=== PATIENT | female | born 1995 | race Two or more races ===

== ENCOUNTER 2024-12-17 10:27 | Emergency (ER) | payer MEDICAID, SELFPAY ==
--- NOTE | 2024-12-17 10:32 | EKG_ITS ---
[facility] Test Date: 2024-12-17 Pat Name: ASHLEIGH JACK Department: Room: - Gender: Female [employer]: : 1995 Requested By: Samantha Chandler Order Number: [id number] Reading MD: Samantha Chandler Measurements Intervals [place] Rate: 64 P: 64 [place]: 113 QRS: 76 QRSD: 88 T: 40 QT: 393 QTc: 406 Interpretive Statements SINUS RHYTHM WITH SHORT [place] INTERVAL NONSPECIFIC T-WAVE ABNORMALITY No previous ECG available for comparison /[id number]/[email or web address]/[id number].pdf
[2024-12-17 11:03] VITALS: BP 116/77; PULSE 64; RESP 20; TEMP 37.2; O2SAT 97; BMI 17.4
--- NOTE | 2024-12-17 11:07 | XR_ITS ---
Examination: PA lateral chest 2 views TECHNIQUE: Upright PA lateral chest 2 views Date and time: December 17, 2024 1132 hours INDICATIONS: Chest pain today. FINDINGS: Significant pneumonia anterior segment left upper lobe. Normal heart size Right lung clear IMPRESSION: Significant left upper lobe pneumonia
--- NOTE | 2024-12-17 11:07 | PD.EDSOB ---
ED SOB =RME/HPI General Chief Complaint: Shortness of Breath/Dyspnea Stated Complaint: Cough, chest pain, SOB Time Seen by Provider: 12/17/24 11:06 Arrival date/time: 12/17/24 10:27 29-year-old female with history of methamphetamine abuse presents to the emergency department today stating that she has cough, congestion and shortness of breath patient for symptoms ongoing for the last couple of days patient reports no fever nausea vomiting Limitations: no limitations Related Data Previous Rx's ?Medication ?Instructions ?Recorded albuterol sulfate 90 mcg/actuation 2 puff inhalation Q6H PRN 12/17/24 aerosol inhaler (Ventolin HFA) shortness of breath or wheezing #8.5 grams amoxicillin 875 mg-potassium 1 tab PO BID 7 days #14 tabs 12/17/24 clavulanate 125 mg tablet azithromycin 500 mg tablet See Rx Instructions PO .COMPLEX #6 12/17/24 tabs Allergies Allergy/AdvReac Type Severity Reaction Status Date / Time No Known Allergies Allergy Verified 12/17/24 10:31 Review of Systems Review of Systems Systems Reviewed: All systems reviewed, normal except as documented Constitutional Constitutional: Reports system reviewed and no additional complaints, except as documented, Denies fever(s) and Denies headache(s) Eyes Eyes: Reports system reviewed and no additional complaints, except as documented and Denies blurry vision ENT Ears, Nose, Mouth, and Throat: Reports system reviewed and no additional complaints, except as documented, Denies headache(s), Denies nasal congestion and Denies nasal discharge Cardiovascular Cardiovascular: Reports system reviewed and no additional complaints, except as documented, Reports chest pain and Reports dyspnea Respiratory Respiratory: Reports system reviewed and no additional complaints, except as documented, Reports chest congestion, Reports cough and Reports dyspnea Gastrointestinal Gastrointestinal: Reports system reviewed and no additional complaints, except as documented and Denies abdominal pain Integumentary/Breasts Skin/Breast: Reports system reviewed and no additional complaints, except as documented and Denies rash Neurologic Neurologic: Reports system reviewed and no additional complaints, except as documented, Reports as per HPI and Denies headache(s) Past Medical History Social History SMOKING STATUS: Current some day smoker ED Exam General Limitations: Present no limitations General appearance: Present alert and in no apparent distress Head Head exam: Present atraumatic, normocephalic and normal inspection Eye Eye exam: Present normal appearance, PERRL and EOMI; Absent conjunctival injection ENT ENT exam: Present normal exam, normal oropharynx and mucous membranes moist Neck Neck exam: Present normal inspection, full ROM and trachea midline Chest Chest inspection: Present normal inspection and symmetric chest wall rise Respiratory Respiratory exam: Present normal lung sounds bilaterally; Absent respiratory distress, wheezes, stridor, accessory muscle use or prolonged expiratory phase Cardiovascular Cardiovascular exam: Present regular rate, normal rhythm and normal heart sounds; Absent bradycardia, tachycardia, irregular rhythm or JVD Abdominal Exam Abdominal exam: Present soft and normal bowel sounds Extremities Exam Extremities exam: Present normal inspection and full ROM Back Exam Back exam: Present normal inspection and full ROM Neurological Exam Neurological exam: Present alert, oriented X3 and CN II-XII intact Psychiatric Psychiatric exam: Present normal affect and normal mood Skin Skin exam: Present warm, dry, intact and normal color Course Quality Measures none Orders Category Date Time Status EKG (ED ONLY) *Do not use* NOW Care 12/17/24 10:32 Completed EKG (ED Only) Stat Exams 12/17/24 10:32 Draft XR chest 2V Stat Exams 12/17/24 11:07 Completed CBC Stat Lab 12/17/24 11:31 Completed Comprehensive Metabolic Panel Stat Lab 12/17/24 11:31 Completed Drug Screen,Urine Stat Lab 12/17/24 11:22 Completed HCG Qualitative,Urine Stat Lab 12/17/24 11:22 Completed Troponin I Stat Lab 12/17/24 11:31 Completed Lidocaine 1% 20 ml [Xylocaine 1% 20 ML] Med 12/17/24 12:36 Discontinued 2.1 ml INFL X1 ONE cefTRIAXone [Rocephin] Med 12/17/24 12:36 Discontinued 1,000 mg IM X1 ONE Vital Signs Vital signs: Vital Signs Temperature 99.0 F 12/17/24 11:03 Pulse Rate 64 12/17/24 11:03 Respiratory Rate 20 12/17/24 11:03 Blood Pressure 116/77 12/17/24 11:03 Pulse Oximetry (%) 97 12/17/24 11:03 Oxygen Delivery Method Room Air 12/17/24 11:03 O2 saturation 97% on room air with normal limits PROCEDURES: EKG Interpretation #1: Date of EK12/17/24 Time of EK:58 Rate: 64 Interpretation: Interpreted by me EKG Impression: Normal sinus rhythm, No acute ST-T changes, No ectopy, No ischemic changes, Normal QRS, Normal intervals and Normal axis Shortness of Breath / Dyspnea MDM Narrative MDM Narrative:: 29-year-old female with history of methamphetamine abuse presents to the emergency department today stating that she has cough, congestion and shortness of breath patient for symptoms ongoing for the last couple of days patient reports no fever nausea vomiting On exam patient well-appearing patient is not appear ill or toxic no acute stress patient has no tachypnea or dyspnea no increased work of breathing Lab work and imaging obtained Lab work unremarkable Imaging consistent with pneumonia Patient given Rocephin here Explained to the patient I would like her to have a repeat x-ray within the next 10 days here in the emergency department to document clearing of this pneumonia For emergent concerns patient instructed to return immediately, patient states understanding Patient data External records reviewed:: [facility] previous records Clinical information provided by:: patient Social determinants that could affect healthcare access:: none Patient has the following chronic illnesses:: None How is presenting disease/condition affected by chronic disease/condition?: no chronic disease Evaluation data The following diagnostics were reviewed and interpreted by me:: lab results, radiology exam(s) and EKG tracing(s) Lab and/or radiology exams considered but not ordered:: Labs, radiology, EKG obtained Interpretation Summary: Reviewed by me Medications / Prescriptions Medications or Prescriptions considered but not ordered:: Given Medication administrations:: Medication Administration History Discontinued Medications Ceftriaxone Sodium (Ceftriaxone Sod Inj 1,000 Mg Vial) 1,000 mg IM X1 ONE Stop: 12/17/24 12:37 Last Admin: 12/17/24 13:09 Dose: 1,000 mg Documented By: GRETTA Lidocaine HCl (Lidocaine Hcl 1% 20 Ml Vial) 2.1 ml INFL X1 ONE Stop: 12/17/24 12:37 Last Admin: 12/17/24 13:09 Dose: 2.1 ml Documented By: GRETTA Given Consultations Consultation(s) initiated? (list below): No Diagnosis Shortness of Breath Differential Diagnosis: acute exacerbation of chronic obstructive airways disease, congestive heart failure, community acquired pneumonia and pulmonary embolism Most likely diagnosis given after review of the tests above:: Pneumonia Admission Indicated Admission indicated?: not indicated Admission Request Was there a request for admission?: No Disposition Plan Disposition Plan: Discharge Discharge Attestation Discharge Attestation: The patient and all family members were given an opportunity to ask questions and understood the discharge instructions. Discharge instructions specifically effects, indications for sooner follow up or return to the emergency department, and the expected course of current diagnosis. Patient condition: Stable Discharge Plan Plan Patient Disposition: HOME (Self Care) Discharge Disposition comment: Stable Prescriptions/Referrals Prescriptions/Med Rec: New amoxicillin-pot clavulanate 875-125 mg tablet 1 tab PO BID 7 Days Qty: 14 0RF azithromycin 500 mg tablet See Rx Instructions .ROUTE .COMPLEX Qty: 6 0RF Rx Instructions: take 500 mg today (day 1), then 250 mg for 4 days (days 2-5) albuterol sulfate [Ventolin HFA] 90 mcg/actuation HFA aerosol inhaler 2 puff inhalation Q6H PRN (Reason: shortness of breath or wheezing) Qty: 8.5 0RF Referrals: Augustin Castillo MD [Primary Care Provider] - 12/18/24 Problem List Clinical Impression: Pneumonia, Methamphetamine abuse Patient/Caregiver Discharge Instructions Education Materials: ED Drug Abuse Additional Instructions: Please follow up with your primary care doctor in the next 24-48hrs for any worsening symptoms return here immediately Please have repeat x-ray after finishing antibiotics Print Language: Estonian Stand Alone Forms: Alana Award Info., Patient Portal Info Letter PA/TOOLS ADMINISTRATOR Supervising Physician PA/JACKELIN Supervising Physician: Dr. Mackenzie
[2024-12-17 11:39] LABS: HCG Qualitative,Urine Negative
[2024-12-17 11:45] LABS: Amphetamine/Methamp Scrn,U Positive (Negative); Barbiturate Screen,Urine Negative (Negative); Benzodiazepines Screen,Urine Negative (Negative); Benzoylecgonine Screen, Ur Negative (Negative); Fentanyl Screen,Urine Negative (Negative); Opiate Screen,Urine Negative (Negative); THC Screen,Urine Positive (Negative)
[2024-12-17 11:54] LABS: Basophils # (Auto) 0.0 Thou/mm3 (0.0-0.2); Basophils % (Auto) 0 % (0-2.5); Eosinophils # (Auto) 0.0 Thou/mm3 (0.0-0.5); Eosinophils % (Auto) 0 % (0-10); Hematocrit 37.5 % (36.0-46.0); Hemoglobin 12.9 g/dL (12.0-16.0); Immature Granulocytes Auto 0.05 Thou/mm3 (0.00-0.00); Lymphocytes # (Auto) 2.0 Thou/mm3 (1.0-4.8); Lymphocytes % (Auto) 20 % (10-50); Mean Corpuscular HGB Conc 34.4 g/dl (31.0-37.0); Mean Corpuscular Hemoglobin 30.7 pg (25.0-35.0); Mean Corpuscular Volume 89 fL (80-100); Monocytes # (Auto) 0.5 Thou/mm3 (0.0-0.8); Monocytes % (Auto) 5 % (0-12); Neutrophils # (Auto) 7.4 Thou/mm3 (1.8-7.7); Neutrophils % (Auto) 74 % (37-80); Nucleated Red Blood Cell # 0.00 Thou/mm3 (0.00-0.00); Nucleated Red Blood Cell % 0 /100 WBC (0); Platelet Count 208 Thou/mm3 (140-440); RDW Standard Deviation 40.3 fL (36.4-46.3); Red Blood Count 4.20 Miln/mm3 (4.00-5.20); White Blood Count 9.9 Thou/mm3 (3.6-11.0)
[2024-12-17 12:28] LABS: Alanine Aminotransferase 12 U/L (10-49); Albumin, Serum 4.3 gm/dL (3.5-5.0); Albumin/Globulin Ratio 1.5 (1.2-2.2); Alkaline Phosphatase 73 U/L (46-116); Anion Gap 12 (7-16); Aspartate Amino Transferase 19 U/L (0-34); BUN/Creatinine Ratio 14 Ratio (12-20); Bilirubin,Total 0.7 mg/dL (0.3-1.2); Blood Urea Nitrogen 10 mg/dL (9-23); Calcium 9.1 mg/dL (8.3-10.6); Calcium (Corrected) 9.1 mg/dL (8.5-10.1); Carbon Dioxide 24.5 mMol/L (20.0-31.0); Chloride 104 mMol/L (98-107); Creatinine (Component) 0.7 mg/dL (0.6-1.3); Estimated Creatinine Clearance 77.4 mL/min (>60); Globulin 2.9 gm/dL (2.3-3.5); Glucose 125 mg/dL (74-106); Osmolality,Calculated 279 (275-295); Potassium 3.4 mMol/L (3.4-5.1); Sodium 140 mMol/L (136-145); Total Protein 7.2 gm/dL (5.7-8.2); Troponin I < 0.002 ng/mL (0.0-0.045); eGFR > 60 See Note
[2024-12-17] MEDS: LIDOCAINE HCL 1% 20 ML VIAL 2.1 ML INFL (13:09)
[2024-12-17] MEDS: cefTRIAXone SOD INJ 1,000 MG VIAL 1000 MG IM (13:09)
== END 2024-12-17 13:15 | disposition home or self-care (01) ==
PROVIDERS: Nurse Practitioner Primary Care; Emergency Provider Emergency Medicine; PCP Family Medicine
DX: J18.9 Pneumonia, unspecified organism (principal); F15.10 Other stimulant abuse, uncomplicated; R94.31 Abnormal electrocardiogram [ECG] [EKG]; F17.210 Nicotine dependence, cigarettes, uncomplicated
CPT/HCPCS: 36415; 71046; 80053; 80307; 81025; 84484; 85025; 93005; 96372; 99283; J0696; J3490